=== PATIENT | male | born 1990 | race Caucasian/White ===

== ENCOUNTER 2017-08-08 17:10 | Emergency (ER) | payer MEDICAID, OTHER ==
[2017-08-08] MEDS: IBUPROFEN 600 MG TAB PO (21:52)
== END 2017-08-09 00:45 | disposition home or self-care (01) ==
LOC: FTE 08-09 00:45
DX: M79.645 Pain in left finger(s) (principal); F17.210 Nicotine dependence, cigarettes, uncomplicated
CPT/HCPCS: 29130; 73140; 99283-25